=== PATIENT | female | born 1965 | race Caucasian/White ===

== ENCOUNTER 2020-04-27 22:34 | Emergency (ER) | payer OTHER ==
[~2020-04-27] VITALS: Ht 175.3 cm; Wt 61.6 kg
--- NOTE | 2020-04-27 22:54 | NUR ---
Patient comes in stating that she needs a refill on her medication d/t a corine in insurance. Lisinipril 10mg QD and Gabapentin 800mg QID.
[2020-04-27 23:31] VITALS: BP 130/63
== END 2020-04-27 23:33 | disposition home or self-care (01) ==
LOC: ED 23:04
DX: I10 Essential (primary) hypertension (principal); Z76.0 Encounter for issue of repeat prescription; G89.29 Other chronic pain
CPT/HCPCS: 99281